=== PATIENT | female | born 1975 | race Caucasian/White ===

== ENCOUNTER 2023-09-27 09:38 | Outpatient (OUT) | payer OTHER, SELFPAY ==
--- NOTE | 2023-09-27 | XR_ITS ---
[address] [address] Patient Name: AYESHA GARCIA MRN: [id number] date: 1975 Sex: F Assigned Patient Location: Current Patient Location: Accession/Order Number: [id number] Exam Date: 09/27/2023 09:40 Report Date: 09/27/2023 13:03 At the request of: TERESA PITT Procedure: XR foot RT min 3V PROCEDURE: XR foot RT min 3V COMPARISON: None. HISTORY: RIGHT FOOT PAIN FINDINGS: BONES:No acute fracture or dislocation. Moderate hallux valgus. First metatarsal-phalangeal joint degenerative changes. Moderate enthesopathic spurring of the calcaneus at the Achilles insertion SOFT TISSUES:Negative. No visible soft tissue swelling. EFFUSION:None visible. OTHER: Negative. XR/XR foot RT min 3V IMPRESSION: Moderate hallux valgus Electronically authenticated by: MITCH HOOVER Date: 09/27/2023 13:03
== END 2023-09-27 09:39 | disposition home or self-care (01) ==
PROVIDERS: Visit Provider Podiatrist Foot & Ankle Surgery
DX: M79.671 Pain in right foot (principal); M20.11 Hallux valgus (acquired), right foot
CPT/HCPCS: 73630